=== PATIENT | male | born 1930 | race Caucasian/White ===

== ENCOUNTER 2019-02-25 08:56 | Emergency (ER) | payer MEDICARE, OTHER ==
[2019-02-25 09:03] VITALS: BMI 29.9
--- NOTE | 2019-02-25 09:29 | PDOC ---
History of Present Illness - General Chief Complaint: Pain, Acute Stated Complaint: FALL Time Seen by Provider: 02/25/19 09:29 History Source: Patient, Family Exam Limitations: No Limitations - History of Present Illness Initial Comments: 88 year old male with PMH HTN, atrial fibrillation on Eliquis, Polio, equilibrium dysfunction presented to ED with Son for RUQ s/p fall from standing. Pt reported he was walking without his walker, lost his balance and fell to the ground, accidentally hitting his abdomen on a chair on the way down. Pt denied head injury, neck pain, headache, back pain, chest pain, hip pain, upper extremity pain, lower extremity pain, LOC, vomiting, dizzines, weakness, visual changes. ROS General: denied fever, chills, generalized weakness. HEENT: denied sore throat, rhinorrhea, ear pain. Cardiovascular: denied chest pain, palpitations, syncope, diaphoresis. Respiratory: denied shortness of breath, cough, sputum production, hemoptysis. Gastrointestinal: admitted to abdominal pain. denied nausea, vomiting, diarrhea , constipation, blood in stool. Genitourinary: denied dysuria, increased urinary frequency, hematuria, urinary incontinence, flank pain. Back: denied back pain. Musculoskeletal: denied joint pain, muscle pain, joint swelling. Neurological: denied headache, dizziness, numbness, tingling, weakness. Integumentary: denied rash, laceration, abrasion. Hematologic/Lymphatic: denied bruising or bleeding. PE Constitutional: Well-nourished, Well-developed, appearing stated age. Airway: intact Breathing: bilateral breath sounds Circulation: 2+ carotid pulse B/L HEENT: head is normocephalic, atraumatic. No facial bones tenderness to palpation. No chen sign. No raccoon eyes. EOMI. PERRLA. Neck: supple. Full ROM. no midline c-spine tenderness to palpation. No step offs. Cardiovascular: irregular irregular heart rhythm. no murmurs. no pericardial friction rub. Chest wall: no seatbelt sign. No tenderness to palpation of anterior chest wall. No deformity to anterior chest wall. Respiratory: clear to auscultation bilaterally. no crackles, rhonchi or wheezing. no stridor. Gastrointestinal: soft, flat. tenderness to palpation of RUQ. normal bowel sounds. no rebound, guarding, masses. No ecchymoses. Back: no midline T-spine or L-spine tenderness to palpation. No step offs. Pelvis: lower extremities equal in length without external rotation. No hip tenderness to palpation. Extremities: peripheral pulses intact. no lower extremity edema. Neurological: CN 2-12 grossly intact. moves all four extremities. Psych: awake, alert, oriented x3. follows commands. answers questions appropriately. Past History - Past Medical History Allergies/Adverse Reactions: Allergies Allergy/AdvReac Type Severity Reaction Status Date / Time No Known Allergies Allergy Verified 02/25/19 09:04 Home Medications: Ambulatory Orders Gabapentin 300 mg PO DAILY 03/15/12 Hydrochlorothiazide [Hctz -] 12.5 mg PO DAILY 11/30/15 Tamsulosin HCl [Flomax -] 0.4 mg PO BID 11/30/15 Alprazolam [Xanax] 0.25 mg PO DAILY 05/23/16 Duloxetine HCl [Cymbalta] 30 mg PO DAILY 05/23/16 Linaclotide [Linzess] 145 mcg PO DAILY 05/23/16 Ranitidine [Zantac -] 150 mg PO BID 05/23/16 Apixaban [Eliquis] 5 mg PO BID #60 tablet 05/26/16 Cardiac Disorders: Yes (A-Fib) Disorders: Yes (bph) HTN: Yes Other medical history: POLIO - Surgical History Orthopedic Surgery: (Fractured Patella Left) - Immunization History Immunization Up to Date: Yes - Suicide/Smoking/Psychosocial Hx Smoking Status: No Smoking History: Never smoked Have you smoked in the past 12 months: No Number of Cigarettes Smoked Daily: 0 Hx Alcohol Use: No Drug/Substance Use Hx: No Substance Use Type: None Hx Substance Use Treatment: No *Physical Exam - Vital Signs Last Vital Signs Temp Pulse Resp BP Pulse Ox 97.7 F 79 16 138/92 94 L 02/25/19 08:59 02/25/19 08:59 02/25/19 08:59 02/25/19 08:59 02/25/19 08:59 ED Treatment Course - LABORATORY CBC & Chemistry Diagram: 02/25/19 09:46 02/25/19 09:46 - RADIOLOGY Radiology Studies Ordered: Category Date Time Status CHEST X-RAY PORTABLE* [RAD] Stat Radiology 02/25/19 09:25 Ordered Medical Decision Making - Medical Decision Making 88 year old male with above PMH presented to ED for RUQ abdominal pain s/p fall. Initial Vital Signs Temp Pulse Resp BP Pulse Ox 97.7 F 79 16 138/92 94 L 02/25/19 08:59 02/25/19 08:59 02/25/19 08:59 02/25/19 08:59 02/25/19 08:59 Afebrile. No tachycardia. No tachypnea. Mild hypertension. Borderline hypoxia on room air. Labs ordered: CBC, CMP, mag, trop, UA/UC, lipase Imaging ordered: CT head, CT cervical spine, CT abdomen/pelvis Medications ordered: tylenol IV EKG performed at 0956: rate 105, irregularly irregular rhythm, normal axis, one PVC, no acute ST changes. 02/25/19 10:13 CBC WBC 10.3 K/mm3 (4.0-10.0) H 02/25/19 09:46 RBC 5.54 M/mm3 (4.00-5.60) 02/25/19 09:46 Hgb 13.0 GM/dL (11.7-16.9) 02/25/19 09:46 Hct 41.4 % (35.4-49) D 02/25/19 09:46 MCV 74.7 fl (80-96) L 02/25/19 09:46 MCH 23.5 pg (25.7-33.7) L D 02/25/19 09:46 MCHC 31.4 g/dl (32.0-35.9) L 02/25/19 09:46 RDW 20.2 % (11.9-15.9) H 02/25/19 09:46 Plt Count 295 K/MM3 (134-434) D 02/25/19 09:46 MPV 8.4 fl (7.5-11.1) 02/25/19 09:46 Absolute Neuts (auto) 7.7 K/mm3 (1.5-8.0) 02/25/19 09:46 Neutrophils % 74.7 % (42.8-82.8) 02/25/19 09:46 Lymphocytes % 12.2 % (8-40) 02/25/19 09:46 Monocytes % 10.0 % (3.8-10.2) 02/25/19 09:46 Eosinophils % 2.6 % (0-4.5) D 02/25/19 09:46 Basophils % 0.5 % (0-2.0) 02/25/19 09:46 Nucleated RBC % 0 % (0-0) 02/25/19 09:46 Mild leukocytosis. No left shift. No anemia. Decreased MCV. 02/25/19 11:03 CMP Sodium 139 mmol/L (136-145) 02/25/19 09:46 Potassium 4.0 mmol/L (3.5-5.1) 02/25/19 09:46 Chloride 102 mmol/L (98-107) 02/25/19 09:46 Carbon Dioxide 31 mmol/L (21-32) 02/25/19 09:46 Anion Gap 6 MMOL/L (8-16) L 02/25/19 09:46 BUN 23.3 mg/dL (7-18) H 02/25/19 09:46 Creatinine 1.5 mg/dL (0.55-1.3) H 02/25/19 09:46 Est GFR (CKD-EPI)AfAm 47.49 02/25/19 09:46 Est GFR (CKD-EPI)NonAf 40.98 02/25/19 09:46 Random Glucose 115 mg/dL (74-106) H 02/25/19 09:46 Calcium 9.7 mg/dL (8.5-10.1) 02/25/19 09:46 Magnesium 2.1 mg/dL (1.8-2.4) 02/25/19 09:46 Total Bilirubin 0.6 mg/dL (0.2-1) 02/25/19 09:46 AST 20 U/L (15-37) 02/25/19 09:46 ALT 29 U/L (13-61) 02/25/19 09:46 Alkaline Phosphatase 144 U/L (45-117) H 02/25/19 09:46 Troponin I < 0.02 ng/ml (0.00-0.05) 02/25/19 09:46 Total Protein 7.3 g/dl (6.4-8.2) 02/25/19 09:46 Albumin 3.6 g/dl (3.4-5.0) 02/25/19 09:46 Lipase 67 U/L (73-393) L 02/25/19 09:46 No electrolyte abnormalities. Last Cr 1.2 CRYSTAL -normal saline bolus 1000 cc once ordered No transaminits Troponin wnl Lipase wnl 02/25/19 11:05 CXR report: Name: DANAE FERRER DEPARTMENT OF RADIOLOGY Phys: Dontrell Mary RESIDENT : 1930 Age: 88 Sex: M [facility] Acct: [id number] Loc: [address] Exam Date: 02/25/19 Status: REG [place] [address] Unit Number: [id number] EXAM#: TYPE/EXAM: RESULT: RAD/CHEST X-RAY PORTABLE* Chest: Fall. Pain. A single AP view of the chest reveals a weak inspiratory effort, large heart, sclerotic knob, normal jesus and clear lung fitzpatrick. The angles are sharp and soft tissues are intact. There are degenerative spine and shoulder changes with evidence of previous right shoulder surgery. An acute process is not seen. If symptoms persist, further imaging may be of help. Impression: No acute chest pathology. Reported By: Jose Gaytan MD 02/25/19 1054 Pelvis XR report: Name: DANAE FERRER DEPARTMENT OF RADIOLOGY Phys: Mary Jon RESIDENT : 1930 Age: 88 Sex: M [facility] Acct : [id number] Loc: [address] Exam Date: 02/25/19 Status: [facility] [place] [address] Unit Number: [id number] EXAM#: TYPE/EXAM: RESULT: RAD/PELVIS ADDENDUM ADDENDUM #1 If symptoms persist or there is decreased range of motion, then further imaging with CT and orthopedic consultation ORIGINAL REPORT AP pelvis: Fall. Pain. Single view of the pelvis is been submitted. 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 An acute fracture or subluxation is not seen. Blastic or lytic changes are not visualized. There are degenerative spine changes. The hips appear symmetrical. SI joints are patent. There is a nonspecific bowel pattern. If symptoms persist , further imaging may be of help. Reported By: Jose Gaytan MD 02/25/19 1055 AP pelvis: Fall. Pain. Single view of the pelvis is been submitted. 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 An acute fracture or subluxation is not seen. Blastic or lytic changes are not visualized. There are degenerative spine changes. The hips appear symmetrical. SI joints are patent. There is a nonspecific bowel pattern. If symptoms persist , further imaging may be of help. Reported By: Jose Gaytan MD 02/25/19 1051 02/25/19 12:18 Pt reported no improvement of pain. Medications ordered: morphine 4 mg IV once, zofran 4 mg IV once 02/25/19 12:34 CT abdomen/pelvis report: Name: DANAE FERRER DEPARTMENT OF RADIOLOGY Phys : Mary Jon RESIDENT : 1930 Age: 88 Sex: M [facility] Acct: [id number] Loc: [address] Exam Date: 02/25/19 Status: [facility] [place] [address] Unit Number: [id number] ACCESSION # : [id number] EXAM#: TYPE/EXAM: RESULT: [id number] CT/ABDOMEN PELVIS CT W/O CONTR Pain and tenderness. Status post fall. CT scan of the abdomen pelvis without oral and intravenous contrast Coronal and sagittal reformatted images were obtained Comparison: Compared to prior CT scan of the abdomen pelvis dated 08/21/2015 There are mild atelectatic changes and interstitial thickening in the left lung base. The heart is within normal limits in size. Calcification of the coronary arteries are present. Evaluation of the liver, spleen and pancreas appear unremarkable. Slightly over distended gallbladder without intraluminal stones or wall thickening. Nondistended stomach significantly limiting evaluation of its wall. The pancreas is within normal limits in size with fatty infiltration in particular the pancreatic body and head. Both adrenal glands and both kidneys appear unremarkable. There is mild stranding of the perinephric fat, bilaterally. There is no evidence of hydroureter or ureteral stone, bilaterally. There is no evidence of small bowel obstruction. Normal- appearing terminal ileum and appendix. Moderate amount of fecal residue in the colon without wall thickening. Partially distended urinary bladder without wall thickening. Prostate gland is within normal limits in size. Perirectal and pericecal fat are clear. Note is made of prominent calcifications at the base of the penis, likely vascular calcifications Moderate degenerative disc disease from T11 down to L3 level with prominent anterior spondylosis. Moderate bilateral facet hypertrophy at L4-L5 and L5-S1 level No gross cervical fracture is identified in included portion of the lower chest IMPRESSION: No gross fracture is identified. Mild atelectatic changes in the left lung base. No CT evidence of an acute process in the abdomen and pelvis. Correlate clinically to determine further evaluation and follow-up Reported By: Traci Morfin MD 02/25/19 12:51 CT cervical spine report/CT head report: Name: DANAE FERRER DEPARTMENT OF RADIOLOGY Phys: Lidia Alamo MD; Mary Jon RESIDENT : 1930 Age : 88 Sex: M [facility] Acct: [id number] Loc: [address] Exam Date: 02/25/19 Status: [place] [address] Unit Number: [id number] EXAM#: TYPE/EXAM : RESULT: CT/HEAD CT WITHOUT CONTRAST CT/CERVICAL SPINE CT W /O CONTR Status post fall with head trauma CT scan of the brain. A noncontrast CT scan of the brain was performed. There is moderate volume loss and ventricular dilatation. Moderate chronic microvascular ischemic changes are present No mass lesion, gross acute infarct or intracranial hemorrhage are identified. Visualized paranasal sinuses and mastoid air cells are well aerated. Calcification of the cavernous carotid arteries are noted. The calvarium is intact . Note is made of multiple air pockets in the right infratemporal fossa extending to just inferior to the right zygomatic arch, of uncertain etiology. No gross right maxillary antrum fracture is identified. There is a lucent line in the right orbital lateral wall suspicious for a nondepressed fracture. There are a couple of air pockets seen in the lateral aspect of the right optic foramen. There is also minimal air is seen within the central lateral significant, anteriorly. Impression: Moderate atrophy and periventricular chronic microvascular ischemic disease changes without CT evidence of acute intracranial pathology. There is suggestion of a nondepressed fracture of the right orbital lateral wall. Air pockets are present in the right infratemporal fossa as well as a couple of air pockets in the right optic foramen, and minimal within the sella turcica, anteriorly, of uncertain etiology CT scan of the cervical spine without intravenous contrast Coronal and sagittal reconstruction images were obtained. There is straightening of the cervical spine. No gross fracture, subluxation or prevertebral soft tissue swelling is seen. No jumped facets are identified. Moderate to marked degenerative disc disease at C5-C6 and C6-C7 level with prominent anterior and mild posterior spur formation Visualized portion of the airway appears unremarkable. No gross enlarged lymph nodes are identified. Lung windows at the thoracic inlet demonstrates interstitial thickening. IMPRESSION: Straightening of the cervical spine. The alignment is satisfactory. No gross fracture or subluxation is seen. No jumped facets are identified. Moderately severe degenerative disc disease at C5-C6 and C6-C7 level Reported By: Traci Morfin MD [id number] 02/25/19 12:57 Pt reassessed, reported no improvement of pain. Reported no facial pain, no tenderness on examination. Imaging ordered: CT chest noncontrast 02/25/19 13:10 Urine Test Results Urine Color Yellow 02/25/19 12:50 Urine Appearance Clear 02/25/19 12:50 Urine pH 6.5 (5.0-8.0) 02/25/19 12:50 Ur Specific [place] 1.027 (1.010-1.035) 02/25/19 12:50 Urine Protein Negative (NEGATIVE) 02/25/19 12:50 Urine Glucose (UA) Negative (NEGATIVE) 02/25/19 12:50 Urine Ketones Negative (NEGATIVE) 02/25/19 12:50 Urine Blood Negative (NEGATIVE) 02/25/19 12:50 Urine Nitrite Negative (NEGATIVE) 02/25/19 12:50 Urine Bilirubin Negative (NEGATIVE) 02/25/19 12:50 Ur Leukocyte Esterase Negative (NEGATIVE) 02/25/19 12:50 Negative for UTI. Negative for hematuria. 02/25/19 15:20 CT chest report: Name: DANAE FERRER DEPARTMENT OF RADIOLOGY Phys: DontrellMary RESIDENT : 1930 Age: 88 Sex: M [facility] Acct: [id number] Loc: [address] Exam Date: 02/25/19 Status: [place] [address] Unit Number: [id number] EXAM#: TYPE/EXAM: RESULT: CT/CHEST CT WITHOUT CONTRAST Right upper quadrant intractable pain. Rule out fracture CT scan of the chest without intravenous contrast Coronal and sagittal reconstruction images were obtained. Compared to prior chest x-ray dated 02/25/2019 There are mild atelectatic and bronchiectatic changes in the left lower lobe. No pneumothorax or pleural effusion identified, bilaterally. Lower neck appears unremarkable The heart is within normal limits in size. Mild calcification of the coronary arteries are present. No gross enlarged mediastinal or hilar lymph nodes are identified. Included upper abdomen appears unremarkable. Notes made of marked degenerative changes involving both shoulder joints There is a minimally displaced fracture in lateral arch of the eighth rib. No gross left rib fracture is identified. Visualized osseous structures appear intact with prominent anterior spondylosis and mild degenerative changes in the mid and lower thoracic spine IMPRESSION: Mild atelectatic and bronchiectatic changes and left lower lobe without gross infiltrates. No pneumothorax or pleural effusion identified, bilaterally. Minimally displaced fracture lateral arch of the right eighth rib. Reported By: Traci Morfin MD 02/25/19 1505 Pt and family informed of results and advised to be admitted for pain control, as pt is splinting, will desaturate from 94% to 90%. Incentive spirometry ordered. 02/25/19 15:[address] Marta Haji, who agrees with observation med/surg. Pending admission. *DC/Admit/Observation/Transfer Diagnosis at time of Disposition: CRYSTAL (acute kidney injury), Fall, Abdominal pain, Rib fracture - Discharge Dispostion Condition at time of disposition: Stable Decision to Admit order: Yes - Referrals - Patient Instructions - Post Discharge Activity
[2019-02-25] MEDS ORDERED: ACETAMINOPHEN 1000 MG/100 ML VIAL (NON FORMULARY) IVPB ONE ×3 (09:31→21:24)
--- NOTE | 2019-02-25 09:39 | PDOC ---
Attending Attestation - Resident Resident Name: Ricardo Jonyla - ED Attending Attestation I have performed the following: I have examined & evaluated the patient, The case was reviewed & discussed with the resident, I agree w/resident's findings & plan, Exceptions are as noted - HPI HPI: 02/25/19 09:33 88 yo male h/o htn, polio, bilat knee surgeries, normally ambulates with walker , on eloquis ,antihypertensives here s/p fall at 3 am. pt was reaching for something under the desk had a fall, c/o right side abd pain. states he was not using his walker. after the fall he was able to get to a chair, slept in his recliner. c/o right sided pain. denies head trauma. no loc. no hematuria. has urinated twice since was not on the estephania for prolonged period of time. - Physicial Exam PE: 02/25/19 09:37 awake alert head atraumatic. no midline cervical spine tenderness. lungs clear bilat heart rrr no mrg abd soft ruq ttp. no eccymosis. no flank tenderness. no palp rib step off or crepitus. ext wwp. from bilat hips nontender. knee NT FROM. nuero alert oriented. moves all four ext symmetricallyl - Medical Decision Making 02/25/19 09:39 88 yo m s/p fall r/o right sided abd pain. differential solid organ injury, contusion, rib fx, plan labs ua cta/p ct hed. cxr. 02/25/19 13:18 pt reassessed. no facial tenderness over occiput. pt with questionable fx on ct head but no clinical sx of fracture. chest right lower and upper abd still significant tendern. unable to give iv contrast due to increased creatinine. will obtain ct chest to r/o occult fracture. pt splinting with pain, oxygen sats 91 - 94% at best , will consider admission for pain control, to chest pt incentive spirometry and prevent pneumonia. 02/25/19 17:12 pt with single rib fracture on ct chest. due to resting hypoxia sats 91 and 90% , will admit for pain control, due to splinting chest pt.
[2019-02-25] MEDS ORDERED: ACETAMINOPHEN INJECTION 100 ML IVPB ONE ×2 (09:47→21:30)
[2019-02-25 10:06] LABS: BASO % 0.5 % (0-2.0); EOS % 2.6 % (0-4.5); HEMATOCRIT 41.4 % (35.4-49); LYMPH % 12.2 % (8-40); MCH 23.5 pg (25.7-33.7); MCHC 31.4 g/dl (32.0-35.9); MEAN CELL VOLUME 74.7 fl (80-96); MEAN PLT VOLUME 8.4 fl (7.5-11.1); NEUT % 74.7 % (42.8-82.8); PLATELET COUNT 295 K/MM3 (134-434); RBC 5.54 M/mm3 (4.00-5.60); RDW 20.2 % (11.9-15.9); WHITE BLOOD COUNT 10.3 K/mm3 (4.0-10.0)
[2019-02-25 10:20] LABS: INR 1.18 (0.83-1.09)
[2019-02-25 10:27] LABS: MAGNESIUM 2.1 mg/dL (1.8-2.4)
[2019-02-25 10:34] LABS: ALBUMIN 3.6 g/dl (3.4-5.0); BILIRUBIN,TOTAL 0.6 mg/dL (0.2-1); BLOOD UREA NITROGEN 23.3 mg/dL (7-18); CALCIUM 9.7 mg/dL (8.5-10.1); CREATININE 1.5 mg/dL (0.55-1.3); TOT PROT 7.3 g/dl (6.4-8.2)
[2019-02-25] MEDS ORDERED: SODIUM CHLORIDE 1,000 ML IV STA (11:02)
[2019-02-25] MEDS ORDERED: morphine CARPU-JECT 4 MG/1 ML DISP.SYRIN IVPUSH ONE (12:18)
[2019-02-25] MEDS ORDERED: ONDANSETRON 4 MG/2 ML VIAL IVPUSH ONE (12:18)
[2019-02-25] MEDS ORDERED: morphine SULFATE 4 MG/ML VIAL ONE (12:19)
[2019-02-25] MEDS ORDERED: ONDANSETRON 4 MG/2 ML VIAL ONE (12:19)
[2019-02-25 13:06] LABS: PH,URINE 6.5 (5.0-8.0); URINE APPEARANCE CLEAR; URINE BILIRUBIN NEGATIVE (NEGATIVE); URINE COLOR YELLOW; URINE GLUCOSE (UA) NEGATIVE (NEGATIVE); URINE KETONE NEGATIVE (NEGATIVE); URINE LEUK ESTERASE NEGATIVE (NEGATIVE); URINE NITRITE NEGATIVE (NEGATIVE); URINE PROTEIN NEGATIVE (NEGATIVE); URINE UROBILINOGEN 0.2 mg/dL (0.2-1.0)
[2019-02-25] MEDS ORDERED: morphine CARPU-JECT 2 MG/1 ML DISP.SYRIN IVPUSH ONE (20:19)
[2019-02-25] MEDS ORDERED: MORPHINE SULFATE 2 MG/ML VIAL ONE (20:28)
[2019-02-25] MEDS ORDERED: LIDOCAINE 5% TOPICAL PATCH TP ONE (21:24)
[2019-02-25] MEDS ORDERED: ACETAMINOPHEN 325 MG TABLET (FP) PO PRN (21:27)
[2019-02-25] MEDS ORDERED: oxyCODONE HCL 5 MG TABLET PO PRN (21:27)
[2019-02-25] MEDS ORDERED: SODIUM CHLORIDE 0.9% 500 ML INFUS.BAG IV ONE (21:28)
[2019-02-25] MEDS ORDERED: LIDOCAINE PATCH REMOVAL MC SCH (22:00)
[2019-02-25] MEDS ORDERED: HEPARIN NA (PORCINE) 5,000 UNITS/ML 1ML VIAL SQ SCH (22:00)
[2019-02-25] MEDS ORDERED: RANITIDINE HCL 150 MG TABLET (FP) PO SCH (22:00)
[2019-02-25] MEDS ORDERED: LIDOCAINE 5% TOPICAL PATCH ONE (22:08)
--- NOTE | 2019-02-25 23:40 | EKG ---
Test Reason : Blood Pressure : / mmHG Vent. Rate : 105 BPM Atrial Rate : 250 BPM P-R Int : 000 ms QRS Dur : 106 ms QT Int : 372 ms P-R-T Axes : 000 -02 -27 degrees QTc Int : 491 ms ATRIAL FIBRILLATION WITH RAPID VENTRICULAR RESPONSE WITH PREMATURE VENTRICULAR OR ABERRANTLY CONDUCTED COMPLEXES INCOMPLETE RIGHT BUNDLE BRANCH BLOCK NONSPECIFIC T WAVE ABNORMALITY ABNORMAL ECG WHEN COMPARED WITH ECG OF 23-MAY-2016 15:01, NO SIGNIFICANT CHANGE WAS FOUND Confirmed by PAUL JC MD ([id number]) on 02/25/2019 11:40:05 PM Referred By: Confirmed By:PAUL JC MD
--- NOTE | 2019-02-26 00:08 | PDOC ---
*Physical Exam - Vital Signs Last Vital Signs Temp Pulse Resp BP Pulse Ox 98.9 F 100 H 19 97/62 99 02/25/19 20:06 02/25/19 20:06 02/25/19 20:06 02/25/19 20:06 02/25/19 20:06 ED Treatment Course - LABORATORY CBC & Chemistry Diagram: 02/25/19 09:46 02/25/19 09:46 - ADDITIONAL ORDERS Additional order review: Laboratory Results 02/25/19 12:50 Urine Color Yellow Urine Appearance Clear Urine pH 6.5 Ur Specific [place] 1.027 Urine Protein Negative Urine Glucose (UA) Negative Urine Ketones Negative Urine Blood Negative Urine Nitrite Negative Urine Bilirubin Negative Urine Urobilinogen 0.2 Ur Leukocyte Esterase Negative 02/25/19 09:46 RBC 5.54 MCV 74.7 L MCHC 31.4 L RDW 20.2 H MPV 8.4 Neutrophils % 74.7 Lymphocytes % 12.2 Monocytes % 10.0 Eosinophils % 2.6 D Basophils % 0.5 - Medications Given in the ED: ED Medications Discontinued Medications Generic Name Dose Route Start Last Admin Trade Name Kaitlynn PRN Reason Stop Dose Admin Acetaminophen 1,000 mg 02/25/19 09:31 02/25/19 09:51 Ofirmev Injection - IVPB 02/25/19 09:32 1,000 mg ONCE ONE Administration Acetaminophen 1,000 mg 02/25/19 09:40 02/25/19 09:52 Ofirmev Injection - IVPB 02/25/19 09:41 Not Given ONCE ONE Acetaminophen 1,000 mg 02/25/19 21:24 02/25/19 21:36 Ofirmev Injection - IVPB 02/25/19 21:25 1,000 mg ONCE ONE Administration Sodium Chloride 1,000 mls @ 1,000 mls/hr 02/25/19 11:02 02/25/19 11:09 Normal Saline - IV 02/25/19 12:01 1,000 mls/hr ASDIR STA Administration Lidocaine 1 patch 02/25/19 21:24 02/25/19 22:16 Lidoderm Patch - TP 02/25/19 21:25 1 patch ONCE ONE Administration Morphine Sulfate 4 mg 02/25/19 12:18 02/25/19 12:23 Morphine Injection - IVPUSH 02/25/19 12:19 4 mg ONCE ONE Administration Morphine Sulfate 2 mg 02/25/19 20:19 02/25/19 20:29 Morphine Injection - IVPUSH 02/25/19 20:20 2 mg ONCE ONE Administration Ondansetron HCl 4 mg 02/25/19 12:18 02/25/19 12:24 Zofran Injection IVPUSH 02/25/19 12:19 4 mg ONCE ONE Administration Sodium Chloride 1,000 ml 02/25/19 21:28 02/25/19 21:36 Normal Saline - IV 02/25/19 21:29 1,000 ml ONCE ONE Administration Medical Decision Making - Medical Decision Making 02/26/19 00:27 Pt has been admitted, however there is no admission note on the chart. Pt has been in the ER for the past 16 hrs, I arrived 5.5 hrs ago, and the entire time he is upset, in pain, requesting to go home, pacing, and hospital has no inpatient floor bed for the patient, so he is being managed in the ER. Pt was originally admitted for his slip and fall and his single minimally displaced eighth rib fracture, and the fact that his [id number] is 92%-96% on RA due to splinting. That is a normal O2 sat range that is not threatening to patient's health and doesn't require admission. Pt has normal CT abd, chest, and hip. 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 02/26/19 00:[address] Cruz, the PMD, and he agrees that pt should go. He will follow with patient. I called pt's son, who is coming to pick dad up. Pt has been clamed down and he is resting now, knowing that son is coming to get him; he will follow with PMD. *DC/Admit/Observation/Transfer Diagnosis at time of Disposition: CRYSTAL (acute kidney injury), Fall, Abdominal pain, Rib fracture - Discharge Dispostion Disposition: HOME Condition at time of disposition: Stable - Referrals - Patient Instructions - Post Discharge Activity
[2019-02-26 00:24] VITALS: BP 133/91; PULSE 84; TEMP 97.4
== END 2019-02-26 01:03 | disposition home or self-care (01) ==
LOC: JER 08:56 → UNDOADMOB 15:23 → JERBED 15:23 → JER 02-26 01:03
PROC: 3E0337Z Introduction of Electrolytic and Water Balance Substance into Peripheral Vein, Percutaneous Approach (ICD-10-PCS; principal; 2019-02-25)
PROC: 3E033NZ Introduction of Analgesics, Hypnotics, Sedatives into Peripheral Vein, Percutaneous Approach (ICD-10-PCS; 2019-02-25)
PROC: 3E033NZ Introduction of Analgesics, Hypnotics, Sedatives into Peripheral Vein, Percutaneous Approach (ICD-10-PCS; 2019-02-25)
PROC: 3E033GC Introduction of Other Therapeutic Substance into Peripheral Vein, Percutaneous Approach (ICD-10-PCS; 2019-02-25)
DX: S22.31XA Fracture of one rib, right side, initial encounter for closed fracture (principal); W01.190A Fall on same level from slipping, tripping and stumbling with subsequent striking against furniture, initial encounter; Y93.89 Activity, other specified; Y92.013 Bedroom of single-family (private) house as the place of occurrence of the external cause; Y99.8 Other external cause status; N17.9 Acute kidney failure, unspecified; Z99.89 Dependence on other enabling machines and devices; I10 Essential (primary) hypertension; I48.91 Unspecified atrial fibrillation; Z79.01 Long term (current) use of anticoagulants
CPT/HCPCS: 36415; 70450-TC; 71045-TC-FY; 71250-TC; 72125-TC; 72170-TC-FY; 74176-TC; 80053; 81003; 83690; 83735; 84484; 85025; 85610; 85730; 86850; 86900; 86901; 87086; 93005; 93010; 96361; 96374; 96375; 96376; 99285-25; J0131; J7030

== ENCOUNTER 2020-03-24 20:10 | Emergency (ER) | payer OTHER ==
[2020-03-24 20:18] VITALS: BMI 30.4
--- NOTE | 2020-03-24 20:49 | PDOC ---
History of Present Illness - General Chief Complaint: Seizure Stated Complaint: SEIZURES Time Seen by Provider: 03/24/20 20:29 - History of Present Illness Initial Comments: HPI: 03/24/20 20:44 89 yo F PMH HTN, atrial fibrillation on Eliquis, polio, equilibrium dysfunction, presenting after choking episode. Primarily Danish speaking, some Cymro. Son at bedside. Reportedly were eating dinner of pork and chicken with rice, and developed choking episode. Had 10 second episode of arm shaking and unresponsiveness, which the son was concerned might be a seizure. No prior history, no post-ictal period. Denies fall, head trauma. Notably, patient has only intermittently had dentures despite having only two teeth remaining. Curr ently has no complaints and feels completely back to baseline. ROS: GENERAL/CONSTITUTIONAL: denies fever, chills, generalized weakness HEAD, EYES, EARS, NOSE AND THROAT: denies rhinorrhea, nasal congestion, throat pain, throat swelling, difficulty swallowing NEUROLOGIC: denies headache, dizziness, mental status changes CARDIOVASCULAR: denies chest pain, palpitations,lightheadedness RESPIRATORY: denies cough, shortness of breath, dyspnea with exertion GASTROINTESTINAL: denies abdominal pain, abdominal distension, nausea, vomiting, diarrhea, constipation GENITOURINARY: denies dysuria, frequency, urgency MUSCULOSKELETAL: denies myalgia, arthralgia SKIN: denies rash, itching PE: Gen: well-developed, well-nourished, NAD Neuro: AAOX4, CN II-XII intact HEENT: atraumatic, normocephalic, dry mucous membranes Neck: trachea midline, supple CV: regular rate, regular rhythm, no murmurs, rubs, or gallops Pulm: CTA b/l, no wheezing Abd: soft, non-distended, non-tender MSK: full ROM, intact pulses Extr: no edema, no deformities Skin: warm, dry MDM: Low concern for seizure considering lack of prior history or post-ictal period. Appears more likely to have been choking episode with transient loss of consciousness. - CBC, CMP, cardiac profile - CXR to assess for foreign body - EKG - likely dc with close outpatient follow-up, swallow study 03/24/20 21:36 CXR poor film, will get chest PA and lateral. CBC unremarkable, CMP with Cr of 1.9, possibly dehydrated. Has been 1.8 in the past. Will give 500 ccs of LR. Trop negative. Will f/u EKG and repeat CXR, plan to dc for further outpatient management. 03/24/20 22:33 CXR with poor lateral, PA without acute pathology. Will f/u EKG, plan to dc with GI follow up for potential swallow study. 03/24/20 22:38 EKG atrial fibrillation with 100 bpm, otherwise without ST segment elevations or T wave inversions. Will dc for further outpatient management. Past History - Medical History Allergies/Adverse Reactions: Allergies Allergy/AdvReac Type Severity Reaction Status Date / Time No Known Allergies Allergy Verified 03/24/20 20:17 Home Medications: Ambulatory Orders Hydrochlorothiazide [Hctz -] 12.5 mg PO DAILY 11/30/15 Tamsulosin HCl [Flomax -] 0.4 mg PO BID 11/30/15 Alprazolam [Xanax] 0.25 mg PO DAILY 05/23/16 Duloxetine HCl [Cymbalta] 30 mg PO DAILY 05/23/16 Linaclotide [Linzess] 145 mcg PO DAILY 05/23/16 Ranitidine [Zantac -] 150 mg PO BID 05/23/16 Apixaban [Eliquis] 5 mg PO BID #60 tablet 05/26/16 Famotidine [Pepcid -] 40 mg PO DAILY 03/24/20 Methylphenidate HCl 5 mg PO DAILY 03/24/20 Metoprolol Succinate 25 mg PO DAILY 03/24/20 Risperidone 0.25 mg PO DAILY 03/24/20 Anemia: No Asthma: No Cancer: No Cardiac Disorders: Yes (A-Fib) CVA: No COPD: No CHF: No Dementia: No Diabetes: No Dialysis: No GI Disorders: No Disorders: Yes (bph) HTN: Yes Hypercholesterolemia: No Kidney Stones: No Liver Disease: No Seizures: No Thyroid Disease: No - Surgical History Abdominal Surgery: No Appendectomy: No Cardiac Surgery: No Cholecystectomy: No Lung Surgery: No Neurologic Surgery: No Orthopedic Surgery: (Fractured Patella Left) - Immunization History Immunization Up to Date: Yes - Psycho-Social/Smoking History Smoking Status: No Smoking History: Never smoked Have you smoked in the past 12 months: No Number of Cigarettes Smoked Daily: 0 Information on smoking cessation initiated: No - Substance Abuse Hx (Audit-C & DAST Scrn) How often the patient has a drink containing alcohol: Never Score: In Men: 4 or > Positive; In Women: 3 or > Positive: 0 Screen Result (Pos requires Nsg. Audit-10AR): Negative In the last yr the pt used illegal drug/Rx for NonMed reason: No Score: Yes response is considered Positive: 0 Screen Result (Positive result requires Nsg. DAST-10): Negative *Physical Exam - Vital Signs Last Vital Signs Temp Pulse Resp BP Pulse Ox 98.6 F 109 H 20 111/63 98 03/24/20 20:15 03/24/20 20:15 03/24/20 20:15 03/24/20 20:15 03/24/20 20:15 ED Treatment Course - LABORATORY CBC & Chemistry Diagram: 03/24/20 20:50 03/24/20 20:50 - RADIOLOGY Radiology Studies Ordered: Category Date Time Status CHEST X-RAY PORTABLE* [RAD] Stat Radiology 03/24/20 20:34 Ordered Discharge - Discharge Information Problems reviewed: Yes Clinical Impression/Diagnosis: Swallowing difficulty Qualifiers: Dysphagia type: unspecified Qualified Code(s): R13.10 - Dysphagia, unspecified Condition: Good Disposition: HOME - Admission No - Follow up/Referral Referrals: Vincent Fernandez MD [Primary Care Provider] - Jocelyn Mckeon DO [Staff Physician] - - Patient Discharge Instructions Additional Instructions: You were seen with choking episode. Your labs, imaging, and EKG did not show any concerning findings. However, it is very important that you follow up with a GI doctor to assess your ability to swallow. The number is listed in your pa perwork. Please follow up with your primary care doctor within one week. Return to the ER if you develop new or worsening symptoms. - Post Discharge Activity
[2020-03-24 21:05] LABS: BASO % 0.9 % (0-2.0); EOS % 1.7 % (0-4.5); HEMATOCRIT 42.3 % (35.4-49); HEMOGLOBIN 13.6 GM/dL (11.7-16.9); LYMPH % 14.4 % (8-40); MCH 26.6 pg (25.7-33.7); MEAN CELL VOLUME 83.2 fl (80-96); MEAN PLT VOLUME 8.3 fl (7.5-11.1); MONO % 15.5 % (3.8-10.2); NEUT % 67.5 % (42.8-82.8); PLATELET COUNT 231 K/MM3 (134-434); RBC 5.09 M/mm3 (4.00-5.60); RDW 19.5 % (11.9-15.9); WHITE BLOOD COUNT 9.3 K/mm3 (4.0-10.0)
[2020-03-24 21:15] LABS: CHLORIDE 104 mmol/L (98-107); POTASSIUM 4.2 mmol/L (3.5-5.1); SODIUM 140 mmol/L (136-145)
[2020-03-24 21:19] LABS: ANION GAP 5 MMOL/L (8-16); BLOOD UREA NITROGEN 26.6 mg/dL (7-18); CO2 31 mmol/L (21-32); GLUCOSE,RANDOM 110 mg/dL (74-106)
[2020-03-24 21:22] LABS: CREATININE 1.9 mg/dL (0.55-1.3); SGOT/AST 24 U/L (15-37); SGPT/ALT 29 U/L (13-61)
[2020-03-24 21:23] LABS: BILIRUBIN,TOTAL 0.5 mg/dL (0.2-1)
[2020-03-24 21:25] LABS: ALK PHOS 158 U/L (45-117)
--- NOTE | 2020-03-24 21:34 | PDOC ---
Documentation entered by Elinor Yun SCRIBE, acting as scribe for Amy Sotelo MD. Amy Sotelo MD: This documentation has been prepared by the Glenroy rios Xhesika, SCRIBE, under my direction and personally reviewed by me in its entirety. I confirm that the documentation accurately reflects all work, treatment, procedures, and medical decision making performed by me. Attending Attestation - Resident Resident Name: Anthony Melendez - ED Attending Attestation I have performed the following: I have examined & evaluated the patient, The case was reviewed & discussed with the resident, I agree w/resident's findings & plan, Exceptions are as noted - HPI HPI: 03/24/20 20:28 The patient is a 89 year old male with PMH HTN, atrial fibrillation on Eliquis, Polio, equilibrium dysfunction who presents to the ED BIBA with son for evaluation of choking episode while having dinner. Per son, pt started shaking and had 10seconds where he passed out. Son states after the 10 seconds, pt was back to baseline. Pt denies feeling a foreign body sensation in his throat. Pt denies history of esophageal stricter. Pt does not have any complaints in the ED. Allergies: NKDA PCP: Vincent Gonzalez - Physicial Exam PE: 03/24/20 20:46 GENERAL: Awake, alert, and fully oriented, in no acute distress HEAD: No signs of trauma EYES: PERRLA, EOMI, sclera anicteric, conjunctiva clear ENT: Auricles normal inspection, hearing grossly normal, nares patent, oropharynx clear without exudates. Moist mucosa NECK: Normal ROM, supple, no lymphadenopathy, JVD, or masses LUNGS: Breath sounds equal, clear to auscultation bilaterally. No wheezes, and no crackles HEART: Regular rate and rhythm, normal S1 and S2, no murmurs, rubs or gallops ABDOMEN: Soft, nontender, normoactive bowel sounds. No guarding, no rebound. No masses EXTREMITIES: Normal range of motion, no edema. No clubbing or cyanosis. No cords, erythema, or tenderness NEUROLOGICAL: Cranial nerves II through XII grossly intact. SKIN: Warm, Dry, normal turgor, no rashes lesions noted. - Medical Decision Making 03/24/20 20:47 this 89 yo male had a witnessed choking episode at dinner and he was shaking and appeared to be unresponsive for 10 seconds. He then was back to baseline 03/24/20 21:34 ekg Afib @ 100 bpm 03/24/20 21:36 labs reviewed and troponin is negative 03/24/20 22:04 his creatinine is elevated and has been in the past 03/24/20 22:51 cxr no ptx, no effusion, no consolidation pt will be discharged home Discharge - Discharge Information Problems reviewed: Yes Clinical Impression/Diagnosis: Swallowing difficulty Qualifiers: Dysphagia type: unspecified Qualified Code(s): R13.10 - Dysphagia, unspecified Condition: Good Disposition: HOME - Follow up/Referral Referrals: Jocelyn Mckeon DO [Staff Physician] - Vincent Fernandez MD [Primary Care Provider] - - Patient Discharge Instructions Additional Instructions: You were seen with choking episode. Your labs, imaging, and EKG did not show any concerning findings. However, it is very important that you follow up with a GI doctor to assess your ability to swallow. The number is listed in your paperwork. Please follow up with your primary care doctor within one week. Return to the ER if you develop new or worsening symptoms. - Post Discharge Activity
[2020-03-24] MEDS ORDERED: LACTATED RINGERS SOLUTION 1000 ML INFUS.BAG IV ONE (21:43)
[2020-03-24 23:02] VITALS: BP 121/78; PULSE 99; TEMP 98.3
--- NOTE | 2020-03-25 16:08 | EKG ---
Test Reason : Blood Pressure : / mmHG Vent. Rate : 100 BPM Atrial Rate : 079 BPM P-R Int : 000 ms QRS Dur : 108 ms QT Int : 364 ms P-R-T Axes : 000 -05 -23 degrees QTc Int : 469 ms ATRIAL FIBRILLATION ABNORMAL ECG WHEN COMPARED WITH ECG OF 25-FEB-2019 09:56, NO SIGNIFICANT CHANGE WAS FOUND Confirmed by MELANIE CAMPOS MD ([id number]) on 03/25/2020 4:08:06 PM Referred By: Confirmed By:MELANIE CAMPOS MD
== END 2020-03-24 23:03 | disposition home or self-care (01) ==
LOC: JER 20:10 → SUPCPDRO 20:10 → JER 23:03
DX: R13.10 Dysphagia, unspecified (principal)
CPT/HCPCS: 36415; 71045-TC-FY; 71046-TC-FY; 80053; 82550; 82553; 84484; 85025; 93005; 93010; 99285-25